=== PATIENT | female | born 1985 | race American Indian/Alaskan Native ===

== ENCOUNTER 2018-02-08 05:47 | Inpatient (IN) | payer OTHER ==
[2018-02-08] MEDS ORDERED: ePHEDrine SULFATE IV PRN (11:30)
[2018-02-08] MEDS ORDERED: ZOFRAN IV PRN ×2 (11:30→17:37)
[2018-02-08] MEDS ORDERED: SUBLIMAZE IV PRN (11:30)
[2018-02-08] MEDS ORDERED: XYLOCAINE 2% INFILTRATI ONE ×2 (11:30→17:14)
[2018-02-08] MEDS ORDERED: STADOL IV PRN (11:30)
[2018-02-08] MEDS ORDERED: BRETHINE SUB-Q PRN (11:30)
[2018-02-08] MEDS ORDERED: MINERAL OIL PO PRN (11:30)
[2018-02-08] MEDS ORDERED: POLYCILLIN/NS 2 GM/100 ML 2 GM/100 ML BAG IV ONE (11:30)
[2018-02-08] MEDS ORDERED: BRETHINE IVP PRN (11:30)
[2018-02-08] MEDS ORDERED: PHENERGAN PO PRN ×2 (11:30→17:37)
--- NOTE | 2018-02-08 11:30 | History and Physical Report ---
History of Present Illness Date of examination: 02/08/18 Date of admission: 02/08/18 05:48 Chief complaint: Labor History of present illness: Pt is a 32yo BF EDC 02/02/18; EGA 40 6/7 weeks presents to L&D complaining of RUC's q 3-4 mins. She received late care at [facility] since 35 weeks after transferring from [facility]. course has been unremarkable except for previous C Section ( delivered by LT @ [facility]) and she desires a TOLAC. records are available and GBS is Negative. Past History Past Medical History: no pertinent history Past Surgical History: section Family/Genetic History: none Social history: no significant social history, - Obstetrical History Expected Date of Delivery: 02/02/18 Actual Gestation: 40 Week(s) 6 Day(s) : 2 Medications and Allergies Allergies Allergy/AdvReac Type Severity Reaction Status Date / Time No Known Allergies Allergy Unverified 02/08/18 07:17 Home Medications Medication Instructions Recorded Confirmed Last Taken Type No Known Home Medications [No 02/08/18 02/08/18 Unknown History Reported Home Medications] Review of Systems All systems: negative - Physical Exam Breasts: Positive: deferred Cardiovascular: Regular rate Lungs: Positive: Clear to auscultation Abdomen: Positive: normal appearance Genitourinary (Female): Positive: normal external genitalia Uterus: Positive: enlarged Extremities: Positive: normal - Obstetrical FHR: category 1 Uterine Contraction Monitor Mode: Internal Cervical Dilatation: 6 Cervical Effacement Percentage: 100 station: 0 Uterine Contraction Pattern: Regular Uterine Tone Measurement Phase: Contraction Uterine Contraction Intensity: Moderate Results Result Diagrams: 02/08/18 11:30 All other labs normal. Assessment and Plan - Patient Problems (1) 40 weeks gestation of Onset Date: 02/08/18 Current Visit: Yes Status: Acute Plan to address problem: A: IUP @ 40 6/7 weeks in labor Previous C Section P: Admit to L&D for TOLAC Expectant vaginal delivery (2) Previous section Onset Date: 02/08/18 Current Visit: Yes Status: Acute
[2018-02-08] MEDS ORDERED: PITOCin/NS 30 UNIT/500ML 30 UNITS/500 ML BAG IV SCH ×2 (12:00)
[2018-02-08] MEDS ORDERED: PITOCin/NS 20 UNIT/1000ML DRIP 20 UNITS/1,000 ML BAG IV SCH ×2 (12:00→18:00)
[2018-02-08] MEDS ORDERED: LACTATED RINGERS 1,000 ML IV SCH (12:00)
[2018-02-08 12:33] LABS: Hematocrit 39.3 % (30.3-42.9); Mean Corpuscular HGB Conc 33 % (30-34); Mean Corpuscular Hemoglobin 27 pg (28-32); Mean Corpuscular Volume 80 fl (79-97); Platelet Count 150 K/mm3 (140-440); Red Blood Count 4.89 M/mm3 (3.65-5.03); Red Cell Distribution Width 16.3 % (13.2-15.2)
[2018-02-08] MEDS ORDERED: AMPICILLIN/NS 1 GM/50 ML 1 GM/50 ML BAG IV SCH (15:33)
--- NOTE | 2018-02-08 17:35 | Procedure Note ---
OB Delivery Note - Delivery Date of Delivery: 02/08/18 Surgeon: BALTAZAR CAMARGO Estimated blood loss: 300cc - Vaginal Delivery presentation: vertex Delivery position: OA Intrapartum events: other(please specify) (previous c section) Delivery induction: none Delivery augmentation: rupture of membranes Delivery monitor: external FHT, internal uterine Route of delivery: Delivery placenta: spontaneous Delivery cord: nuchal cord (x2), true knot (x1), 3 umbilical vessels Episiotomy: none Delivery laceration: 2nd degree (perineal) Delivery repair: vicryl Anesthesia: local Delivery comments: Infant delivered OA and placed on Mom's chest to [id number] bonding and delayed cord clamping and cut by Grandmother - Infant A at 1 minute: 7 at 5 minutes: 9 Gender: Male (3768gms)
[2018-02-08] MEDS ORDERED: TYLENOL PO PRN (17:37)
[2018-02-08] MEDS ORDERED: LANSINOH TP PRN (17:37)
[2018-02-08] MEDS ORDERED: BENADRYL PO PRN (17:37)
[2018-02-08] MEDS ORDERED: MILK OF MAGNESIA PO PRN (17:37)
[2018-02-08] MEDS ORDERED: PHENERGAN PR PRN (17:37)
[2018-02-08] MEDS ORDERED: TUCKS PAD TP PRN (17:37)
[2018-02-08] MEDS ORDERED: DULCOLAX PR PRN (17:37)
[2018-02-08] MEDS ORDERED: SODIUM CHLORIDE FLUSH SYRINGE 10 ML IV NR (18:00)
[2018-02-08] MEDS: MOTRIN PO SCH ×2 (18:31→23:13)
[2018-02-08] MEDS: COLACE PO SCH (21:04)
[2018-02-08] MEDS: FEOSOL PO SCH (21:04)
[2018-02-09] MEDS: NORCO 5/325 PO PRN (00:12)
[2018-02-09 03:58] LABS: Hematocrit 31.4 % (30.3-42.9); Hemoglobin 10.2 gm/dl (10.1-14.3)
[2018-02-09] MEDS: MOTRIN PO SCH ×2 (05:19→18:14)
[2018-02-09] MEDS: COLACE PO SCH ×2 (10:48→22:53)
[2018-02-09] MEDS: FEOSOL PO SCH ×2 (10:49→22:53)
[2018-02-09] MEDS: PRENATAL VITAMIN PO SCH (10:50)
[2018-02-09] MEDS ORDERED: M-M-R II VACCINE SUB-Q ONE (17:37)
[2018-02-09] MEDS ORDERED: BOOSTRIX IM ONE (17:37)
[2018-02-10] MEDS: MOTRIN PO SCH ×3 (00:19→11:34)
[2018-02-10] MEDS: FEOSOL PO SCH (11:34)
[2018-02-10] MEDS: COLACE PO SCH (11:34)
[2018-02-10] MEDS: PRENATAL VITAMIN PO SCH (11:34)
[2018-02-10] MEDS: NORCO 5/325 PO PRN (12:53)
--- NOTE | 2018-02-10 13:17 | Progress Note ---
Assessment and Plan A: Pp Day #2 Stable P: Follow Routine Orders D/C home today RTO in 4 Weeks Subjective - Subjective Date of service: 02/10/18 Patient reports: appetite normal, voiding normally, pain well controlled, flatus , ambulating normally : doing well, bottle feeding (and ) Objective - Vital Signs Latest vital signs: Vital Signs Temp Pulse Resp BP Pulse Ox 02/10/18 12:53 20 02/10/18 09:15 97.9 F 95 H 18 102/58 100 02/10/18 06:43 18 02/10/18 01:19 18 02/10/18 00:19 17 02/10/18 00:10 98.3 F 89 18 114/65 02/09/18 15:59 97.9 F 89 18 109/62 100 Intake and Output 02/09/18 02/10/18 02/10/18 22:59 06:59 14:59 Intake Total 360 240 240 Balance 360 240 240 Intake: Oral 240 120 Intake, Free Water 120 240 120 Other: Total, Intake Amount 240 120 # Voids Void 1 1 1 - Exam Breasts: Present: normal Cardiovascular: Present: Regular rate Lungs: Present: Clear to auscultation, Normal air movement Abdomen: Present: normal appearance, soft, normal bowel sounds Vulva: right: normal Uterus: Present: normal, firm, fundal height below umbilicus Extremities: Present: normal
--- NOTE | 2018-02-10 13:18 | Discharge Summary ---
Providers - Providers Date of Admission: 02/08/18 05:48 Date of discharge: 02/10/18 Attending physician: BALTAZAR CAMARGO Primary care physician: BALTAZAR CAMARGO Hospitalization Reason for admission: active labor Delivery: Episiotomy: none Laceration: 2nd degree Other procedures: none complications: none Discharge diagnosis: IUP at term delivered [place] baby: male Condition at discharge: Good Disposition: DC-01 TO HOME OR SELFCARE Plan - Provider Discharge Summary Activity: routine, no sex for 6 weeks, no heavy lifting 4 weeks, no strenuous exercise Diet: routine Instructions: routine Additional instructions: [] Smoking cessation referral if applicable(refer to patient education folder for contact #) [] Refer to [facility] Booklet Call your doctor immediately for: * Fever > 100.5 * Heavy vaginal bleeding ( >1 pad per hour) * Severe persistent headache * Shortness of breath * Reddened, hot, painful area to leg or breast * Drainage or odor from incision. * Keep incision clean and dry at all times and follow doctor's instructions regarding bathing/showering - Follow up plan Follow up: BALTAZAR CAMARGO MD [Primary Care Provider] - 03/12/18
[2018-02-10 15:19] VITALS: BP 108/62
== END 2018-02-10 16:25 | disposition home or self-care (01) | DRG 775 ==
LOC: TRG 05:47 → LD 05:48 → TRG 05:53 → OB 20:02
PROVIDERS: ADMIT Obstetrics & Gynecology; ATTEND Obstetrics & Gynecology
PROC: 10E0XZZ Delivery of Products of Conception, External Approach (ICD-10-PCS; principal; 2018-02-08)
PROC: 0KQM0ZZ Repair Perineum Muscle, Open Approach (ICD-10-PCS; 2018-02-08)
DX: O69.81X0 Labor and delivery complicated by cord around neck, without compression, not applicable or unspecified (principal); O34.211 Maternal care for low transverse scar from previous cesarean delivery; O69.2XX0 Labor and delivery complicated by other cord entanglement, with compression, not applicable or unspecified; O70.1 Second degree perineal laceration during delivery; Z3A.40 40 weeks gestation of pregnancy; Z37.0 Single live birth
CPT/HCPCS: 36415; 85014; 85018; 85027; 86592; 86850; 86900; 86901; J0290; J2590; J3010; J7120